=== PATIENT | female | born 1970 | race Caucasian/White ===

== ENCOUNTER → 2019-03-04 | Day surgery (SDC) | payer BC ==
[2019-03-02 09:30] VITALS: BMI 36.6
[~2019-03-04] MED LIST: Propofol 10 mg/ml Inj (20 ML) ONE; Sodium Chloride 0.9% 1,000 ML IV SCH
[2019-03-04 09:42] VITALS: BP 116/77; PULSE 81; RESP 16; TEMP 98.1; O2SAT 97
== END | disposition home or self-care (01) ==
LOC: ENDO 06:38
PROVIDERS: ATTEND Internal Medicine Gastroenterology
DX: Z12.11 Encounter for screening for malignant neoplasm of colon (principal); D12.2 Benign neoplasm of ascending colon; D12.3 Benign neoplasm of transverse colon; K57.30 Diverticulosis of large intestine without perforation or abscess without bleeding; K64.1 Second degree hemorrhoids; E03.9 Hypothyroidism, unspecified; E66.9 Obesity, unspecified; Z68.36 Body mass index [BMI] 36.0-36.9, adult
CPT/HCPCS: 45380; 45385; 84703; 88305; J2704; J7030; J7040